=== PATIENT | female | born 1990 | race Two or more races ===

== ENCOUNTER 2025-01-15 10:06 | Emergency (ER) | payer BC, SELFPAY ==
[2025-01-15 10:36] VITALS: BP 118/79; PULSE 94; RESP 16; TEMP 37; O2SAT 100
--- NOTE | 2025-01-15 10:57 | EDNOTE_ITS ---
ED Back Injury Pain RME/HPI General Chief Complaint: Back Pain/Injury Stated Complaint: LOWER BACK PAIN, PREG 6WKS APPROX Time Seen by Provider: 01/15/25 10:31 Arrival date/time: 01/15/25 10:06 Limitations: no limitations RME / HPI RME / HPI Narrative: DR. NORA BRYANT ED EVALUATION: 34-year-old female, with two prior miscarriages and no significant past medical history, presents to the Emergency Department with severe lower back pain radiating bilaterally around the waist to the front, described as a almost all around band-like pain since Thursday, but worse in her lower mid back area. She reports bilateral leg cramping beginning followed by the back pain on Thursday. She recently discovered she is , last Thursday, after planning to start IVF. She currently has no established CARAMEL CUTTER HAND yet. She denies fever, chills, nausea, vomiting, smoking, alcohol, or drug use. Related Data Allergies Allergy/AdvReac Type Severity Reaction Status Date / Time No Known Allergies Allergy Verified 06/08/23 10:16 Review of Systems Review of Systems Systems Reviewed: All systems reviewed, normal except as documented Past Medical History Social History SMOKING STATUS: Never smoker SUBSTANCE USE: does not use ALCOHOL: Never ED Exam General Limitations: Present no limitations General appearance: Present alert and in no apparent distress Head Head exam: Present atraumatic, normocephalic and normal inspection Eye Eye exam: Present normal appearance, PERRL and EOMI ENT ENT exam: Present normal exam, normal oropharynx and mucous membranes moist Neck Neck exam: Present normal inspection, full ROM and trachea midline Chest Chest inspection: Present normal inspection and symmetric chest wall rise Respiratory Respiratory exam: Present normal lung sounds bilaterally Cardiovascular Cardiovascular exam: Present regular rate, normal rhythm and normal heart sounds Abdominal Exam Abdominal exam: Present soft and normal bowel sounds Extremities Exam Extremities exam: Present other (Mild tenderness to palpation to both hips ) Back Exam Back exam: Present normal inspection and full ROM Neurological Exam Neurological exam: Present alert, oriented X3 and CN II-XII intact Psychiatric Psychiatric exam: Present normal affect and normal mood Skin Skin exam: Present warm, dry, intact and normal color Course Quality Measures none Orders Category Date Time Status US OB <= 14 weeks fetus Stat Exams 01/15/25 11:13 Completed US OB transvaginal Stat Exams 01/15/25 13:15 Completed Beta HCG,Quantitative Stat Lab 01/15/25 11:29 Completed CBC Stat Lab 01/15/25 11:29 Completed CMP [Comprehensive Metabolic Panel] Stat Lab 01/15/25 11:29 Completed HCG,Qualitative Serum Stat Lab 01/15/25 11:29 Completed Lipase Stat Lab 01/15/25 11:29 Completed Type and Screen Stat Lab 01/15/25 11:50 Completed UA, C/S IF [Urinalysis, C/S if Indicated] Stat Lab 01/15/25 11:20 Completed Acetaminophen Tab [Tylenol Tab] Med 01/15/25 11:10 Discontinued 650 mg PO X1 ONE Acetaminophen Tab [Tylenol Tab] Med 01/15/25 11:14 Discontinued 650 mg PO X1 ONE Metoclopramide Inj [Reglan Inj] Med 01/15/25 11:07 Discontinued 5 mg IVP STAT STA Ringers Lactated 1000 ml [Lactated Ringers] 1,000 ml Med 01/15/25 11:09 Discontinued IV 999 mls/hr Vital Signs Vital signs: Vital Signs Temperature 98.6 F 01/15/25 10:36 Pulse Rate 94 01/15/25 10:36 Respiratory Rate 16 01/15/25 10:36 Blood Pressure 118/79 01/15/25 10:36 Pulse Oximetry (%) 100 01/15/25 10:36 Oxygen Delivery Method Room Air 01/15/25 10:36 Back Pain / Injury MDM Narrative MDM Narrative:: Patient is a 34-year-old female that is in the emergency department concerns for crampy low back pain. Vital signs and exam as listed. Concern for miscarriage, ectopic , urinary tract infection. Patient without any saddle anesthesia, no focal neurodeficits, no weakness in her extremities, no history of IV drug use, no unintended weight loss. Most likely acute spinal cord pathology at this time. Patient is ambulated without difficulties. No fever. Patient recently found out that she is , her beta-hCG has not increased appropriately and she is concerned that her is not progressing the way that it showed. Ordered OB ultrasound, pelvic ultrasound, labs and offer medication for symptom relief. Labs without any acute hematologic or significant metabolic abnormality. Urinalysis without evidence of infection. blood type O+. pelvic u/s did not identify an intrauterine gestation, there is mild free fluid in the endometrium, there is multiple uterine solid masses, the largest is in the fundus 2 x 2 cm. The right and left ovary have arterial flow there is also a 13 mm follicular cyst. Transvaginal ultrasound shows thickened endometrium up to 28 mm suspicious for retained products of conception versus molar . Patient with multiple uterine areas of fibroid degeneration the largest is 21 x 18 x 22. 4:37p Discussed case with Dr. Lainez, given that patient is HD stable, NAD and not bleeding, no emergent surgical intervention indicated however needs to follow-up with her blind escort this week. Patient is to return if she develops worsening pain, bleeding, or any other symptom or concern I, Angelina Rivera am scribing for and in the presence of Dr. Neumann. Patient data External records reviewed:: [facility] previous records Clinical information provided by:: patient Social determinants that could affect healthcare access:: none Patient has the following chronic illnesses:: with two prior miscarriages but other than that no significant past medical history. How is presenting disease/condition affected by chronic disease/condition?: no chronic disease Evaluation data The following diagnostics were reviewed and interpreted by me:: lab results and radiology exam(s) Lab and/or radiology exams considered but not ordered:: none Interpretation Summary: See MDM narrative above. RADIOLOGY Procedure(s): US OB <= 14 weeks fetus Accession Number(s): [id number] cc: James Christensen MD; Janett Blakely; Elisa Neumann MD~ Examination: Complete OB ultrasound, less than 14 weeks, transabdominal Date and time of exam: January 07, 2025, 1209 hrs. Indications: Lower back pain pelvic pain with positive test noticed 2 days ago Technique: Obstetrical ultrasound images less than 14 weeks performed via transabdominal imaging Findings: Uterus 13.8 cm no intrauterine gestation Mild free fluid in the endometrium Multiple uterine solid masses, the largest in the fundus 2.0 x 2.0 cm Right ovary 2.5 cm arterial flow Left ovary 3.5 cm arterial flow 13 mm follicular cyst Impression: Negative for intrauterine gestation Multiple small uterine areas of fibroid degeneration, the largest in the fundus of uterus 20 mm, in the endometrium 20 mm and in the uterine body 20 mm Dictated By: James Christensen MD ----- Procedure(s): US OB transvaginal Accession Number(s): [id number] cc: James Christensen MD; Janett Blakely; Elisa Neumann MD~ Examination: OB Transvaginal ultrasound of the pelvis, complete Technique: Transvaginal sonographic images pelvis performed using dennis scale imaging Exam date and time: March 17, 2025, 1520 hrs. Indications: Lower back pain beginning 2 days ago with positive test 3 days ago, comparison 01/07/2025 1209 hrs. Findings: Uterus 11.7 cm no intrauterine gestation Thickened endometrium up to 28 mm suspicious for retained products of conception versus molar Multiple uterine areas of fibroid degeneration, the largest in the fundus 21 x 18 x 22 mm Right ovary 2.8 x 1.3 x 2.9 cm arterial flow Left ovary 3.4 x 2.7 x 3.3 cm arterial flow 15 mm follicular cyst Impression: No intrauterine gestation Thickened endometrium with small cystic areas, differential would include molar , retained process of conception not excluded, clinical correlation advised and recommend continued follow-up Dictated By: James Christensen MD Medications / Prescriptions Medications or Prescriptions considered but not ordered:: none Medication administrations:: Medication Administration History Discontinued Medications Acetaminophen (Acetaminophen 325 Mg Tablet) 650 mg PO X1 ONE Stop: 01/15/25 11:11 Acetaminophen (Acetaminophen 325 Mg Tablet) 650 mg PO X1 ONE Stop: 01/15/25 11:15 Last Admin: 01/15/25 12:48 Dose: 650 mg Documented By: ED Lactated Ringer's (Lactated Ringers) 1,000 mls @ 999 mls/hr IV .Q1H1M ONE Stop: 01/15/25 12:09 Last Admin: 01/15/25 11:12 Dose: Not Given Documented By: DO Non-Admin Reason: Cancelled by Provider Metoclopramide HCl (Metoclopramide Inj 5 Mg/Ml Vial 2 Ml) 5 mg IVP STAT STA; Protocol Stop: 01/15/25 11:08 Last Admin: 01/15/25 11:12 Dose: Not Given Documented By: DO Non-Admin Reason: Cancelled by Provider see above if any Consultations Consultation(s) initiated? (list below): Yes Consultation #1 (Physician, Specialty, Details): See MDM narrative above. Diagnosis Differential diagnosis back pain/injury: other (Ectopic , threatened , and musculoskeletal pain.) Most likely diagnosis given after review of the tests above:: Elevated serum hCG Admission Indicated Admission indicated?: not indicated Admission Request Was there a request for admission?: No Disposition Plan Disposition Plan: Discharge Discharge Attestation Discharge Attestation: The patient and all family members were given an opportunity to ask questions and understood the discharge instructions. Discharge instructions specifically effects, indications for sooner follow up or return to the emergency department, and the expected course of current diagnosis. Patient condition: Stable Discharge Plan Plan Patient Disposition: HOME (Self Care) Prescriptions/Referrals Referrals: Janett Blakely FNP [Primary Care Provider] - In 1 week Problem List Clinical Impression: Elevated serum hCG Patient/Caregiver Discharge Instructions Additional Instructions: Your hCG today is 283. Your ultrasound report per the radiologist shows a thick endometrium of approximately 28 mm concerning for possible retained products of conception versus a molar . You also have multiple fibroids with the largest being 21 x 18 x 22 mm. We have not definitively ruled out an ectopic . It is important that you return to the emergency department in 2 days for repeat beta-hCG and transvaginal ultrasound. Please follow-up with your blind escort within the next 1 to 2 days. Return immediately if you develop to bleeding, worsening pain or any other symptom of concern. If you do not have a blind escort you can also contact Dr. Adams at: [facility] [address] [place] [address] VIJAY Cortes [phone] Print Language: [place] Stand Alone Forms: Nell Award Info., Work/School Release, Patient Portal Info Letter
--- NOTE | 2025-01-15 11:13 | XR_ITS ---
Examination: Complete OB ultrasound, less than 14 weeks, transabdominal Date and time of exam: January 07, 2025, 1209 hrs. Indications: Lower back pain pelvic pain with positive test noticed 2 days ago Technique: Obstetrical ultrasound images less than 14 weeks performed via transabdominal imaging Findings: Uterus 13.8 cm no intrauterine gestation Mild free fluid in the endometrium Multiple uterine solid masses, the largest in the fundus 2.0 x 2.0 cm Right ovary 2.5 cm arterial flow Left ovary 3.5 cm arterial flow 13 mm follicular cyst Impression: Negative for intrauterine gestation Multiple small uterine areas of fibroid degeneration, the largest in the fundus of uterus 20 mm, in the endometrium 20 mm and in the uterine body 20 mm
[2025-01-15 11:39] LABS: Collection Type, Urine Clean Catch
[2025-01-15 11:44] LABS: Basophils # (Auto) 0.0 Thou/mm3 (0.0-0.2); Basophils % (Auto) 0 % (0-2.5); Eosinophils # (Auto) 0.0 Thou/mm3 (0.0-0.5); Eosinophils % (Auto) 1 % (0-10); Hematocrit 35.4 % (36.0-46.0); Hemoglobin 12.1 g/dL (12.0-16.0); Immature Granulocytes Auto 0.01 Thou/mm3 (0.00-0.00); Lymphocytes # (Auto) 1.3 Thou/mm3 (1.0-4.8); Lymphocytes % (Auto) 22 % (10-50); Mean Corpuscular HGB Conc 34.2 g/dl (31.0-37.0); Mean Corpuscular Hemoglobin 30.3 pg (25.0-35.0); Mean Corpuscular Volume 89 fL (80-100); Monocytes # (Auto) 0.5 Thou/mm3 (0.0-0.8); Monocytes % (Auto) 9 % (0-12); Neutrophils # (Auto) 3.9 Thou/mm3 (1.8-7.7); Neutrophils % (Auto) 68 % (37-80); Nucleated Red Blood Cell # 0.00 Thou/mm3 (0.00-0.00); Nucleated Red Blood Cell % 0 /100 WBC (0); Platelet Count 224 Thou/mm3 (140-440); RDW Standard Deviation 40.2 fL (36.4-46.3); Red Blood Count 3.99 Miln/mm3 (4.00-5.20); White Blood Count 5.8 Thou/mm3 (3.6-11.0)
[2025-01-15 11:55] LABS: HCG,Qualitative Serum Positive
[2025-01-15 12:02] LABS: Alanine Aminotransferase 10 U/L (10-49); Albumin, Serum 4.2 gm/dL (3.5-5.0); Albumin/Globulin Ratio 1.6 (1.2-2.2); Alkaline Phosphatase 57 U/L (46-116); Anion Gap 9 (7-16); Aspartate Amino Transferase 12 U/L (0-34); BUN/Creatinine Ratio 12 Ratio (12-20); Bilirubin,Total 0.6 mg/dL (0.3-1.2); Blood Urea Nitrogen 7 mg/dL (9-23); Calcium 9.3 mg/dL (8.3-10.6); Calcium (Corrected) 9.3 mg/dL (8.5-10.1); Carbon Dioxide 24.5 mMol/L (20.0-31.0); Chloride 109 mMol/L (98-107); Creatinine (Component) 0.6 mg/dL (0.6-1.3); Estimated Creatinine Clearance 102.3 mL/min (>60); Globulin 2.6 gm/dL (2.3-3.5); Glucose 95 mg/dL (74-106); Lipase 46 U/L (12-53); Osmolality,Calculated 281 (275-295); Potassium 3.4 mMol/L (3.4-5.1); Sodium 142 mMol/L (136-145); Total Protein 6.8 gm/dL (5.7-8.2); eGFR > 60 See Note
[2025-01-15 12:09] LABS: Bacteria,Urine Rare; Bilirubin,Urine Negative (Negative); Blood,Urine Negative (Negative); Clarity,Urine Clear (Clear/Hazy); Color,Urine Lt-Yellow (Lt Yel-Yel); Culture Indicated,Urine Not Indicated; Glucose, Urine Negative (Negative); Ketones,Urine Negative (Negative); Leukocyte Esterase,Urine Negative (Negative); Nitrite,Urine Negative (Negative); PH,Urine 6.5 (5.0-7.0); Protein,Urine Negative (Neg - Trace); RBC,Urine < 1 /hpf (0-3); Specific Gravity,Urine 1.015 (1.001-1.035); Squamous Epithelial Cell,Urine 5 /hpf (0-5); Urobilinogen,Urine Negative mg/dL (0.0-1.0); WBC,Urine 1 /hpf (0-5)
[2025-01-15] MEDS: ACETAMINOPHEN 325 MG TABLET 650 MG PO (12:48)
[2025-01-15 13:00] LABS: Beta HCG,Quantitative 283 mIU/mL (<5.0)
--- NOTE | 2025-01-15 13:15 | XR_ITS ---
Examination: OB Transvaginal ultrasound of the pelvis, complete Technique: Transvaginal sonographic images pelvis performed using dennis scale imaging Exam date and time: March 17, 2025, 1520 hrs. Indications: Lower back pain beginning 2 days ago with positive test 3 days ago, comparison 01/07/2025 1209 hrs. Findings: Uterus 11.7 cm no intrauterine gestation Thickened endometrium up to 28 mm suspicious for retained products of conception versus molar Multiple uterine areas of fibroid degeneration, the largest in the fundus 21 x 18 x 22 mm Right ovary 2.8 x 1.3 x 2.9 cm arterial flow Left ovary 3.4 x 2.7 x 3.3 cm arterial flow 15 mm follicular cyst Impression: No intrauterine gestation Thickened endometrium with small cystic areas, differential would include molar , retained process of conception not excluded, clinical correlation advised and recommend continued follow-up
== END 2025-01-15 17:46 | disposition home or self-care (01) ==
PROVIDERS: Emergency Provider Emergency Medicine; PCP Nurse Practitioner Family
DX: O34.11 Maternal care for benign tumor of corpus uteri, first trimester (principal); N83.02 Follicular cyst of left ovary; D25.9 Leiomyoma of uterus, unspecified; R93.89 Abnormal findings on diagnostic imaging of other specified body structures
CPT/HCPCS: 36415; 76801; 76817; 80053; 81001; 83690; 84702; 84703; 85025; 85610; 86850; 86900; 86901; 87502; 99284; A9270